=== PATIENT | female | born 2000 | race Two or more races ===

== ENCOUNTER 2022-11-06 08:04 | Day surgery (SDC) | payer MEDICAID, OTHER ==
[2022-11-04 15:33] LABS: Basophils # (auto) 0 10 ^3/uL (0-0.2); Basophils % (auto) 0.4 % (0.0-2.0); Eosinophils % (auto) 1.6 % (0.0-7.0); Hemoglobin 12.7 g/dL (12.2-16.2); Mean Corpuscular Hemoglobin 26.8 pg (28.0-32.0); Mean Corpuscular Hgb Conc. 33.1 g/dL (32.0-36.0); Monocytes # (auto) 0.8 10 ^3/uL (0-1.3); Nucleated Red Blood Cells % 0.2 %
[2022-11-04 15:35] LABS: Eosinophils # (auto) 0.2 10 ^3/uL (0-0.8); Hematocrit 38.4 % (36.0-46.0); Lymphocytes # (auto) 2.6 10 ^3/uL (0.4-5.4); Lymphocytes % (auto) 27.6 % (10.0-50.0); Monocytes % (auto) 8.8 % (0.0-12.0); Neutrophils # (auto) 5.9 10 ^3/uL (1.6-8.6); Neutrophils % (auto) 61.6 % (37.0-80.0); Red Blood Cells 4.75 10^6/uL (4.0-5.20); Red Cell Distribution Width 16.2 % (11.8-14.3); White Blood Cell 9.6 10^3/uL (4.4-10.8)
[2022-11-04 15:49] LABS: INR 0.97 (0.9-1.15); Partial Thromboplastin Time 30.7 sec (24.6-33.4)
[2022-11-04 16:03] LABS: Albumin 3.6 g/dL (3.4-5.0); Calcium 8.4 mg/dL (8.5-10.1); Potassium 3.8 mmol/L (3.5-5.1)
[2022-11-04 16:06] LABS: Bilirubin, Total 0.2 mg/dL (0.2-1.0); Total Protein 7.8 g/dL (6.4-8.2)
[2022-11-04 16:13] LABS: Urine Bacteria FEW /hpf (None Seen); Urine Blood Negative /uL (Negative); Urine Mucus FEW (None Seen); Urine Specific Gravity 1.028 (1.001-1.035); Urine WBC 1 /hpf (0 - 5)
[~2022-11-06] VITALS: Ht 154.9 cm; Wt 108.4 kg
[2022-11-06] MEDS ORDERED: fentaNYL CITRATE 100 MCG/2 ML VL ONE (08:45)
[2022-11-06] MEDS ORDERED: MIDAZOLAM HCL 2MG/2ML 2ml VIAL (1mg/ml) ONE (08:45)
[2022-11-06] MEDS ORDERED: PROPOFOL 10 MG/ML 20 ML IV ONE (08:57)
[2022-11-06] MEDS ORDERED: ONDANSETRON HCL 4 MG/2 ML VIAL ONE (08:57)
[2022-11-06] MEDS ORDERED: ONDANSETRON HCL 4 MG/2 ML VIAL IV PRN (09:15)
[2022-11-06 09:51] VITALS: BP 117/69
== END 2022-11-06 10:35 | disposition home or self-care (01) ==
LOC: GI 08:04
PROVIDERS: ATTEND Internal Medicine Gastroenterology
DX: K62.5 Hemorrhage of anus and rectum (principal); K29.70 Gastritis, unspecified, without bleeding; K62.89 Other specified diseases of anus and rectum; E66.01 Morbid (severe) obesity due to excess calories; Z68.42 Body mass index [BMI] 45.0-49.9, adult
CPT/HCPCS: 36415; 43239; 45378; 80053; 81001; 81025; 85025; 85610; 85730; 88305; 88342; J2250; J2405; J2704; J3010; J7030